=== PATIENT | female | born 1985 | race Two or more races ===

== ENCOUNTER 2017-07-03 13:23 | Emergency (ER) | payer MEDICAID ==
[~2017-07-03] VITALS: Ht 154.9 cm; Wt 57.3 kg
[2017-07-03 13:43] VITALS: BP 110/66
== END 2017-07-03 15:20 | disposition left against medical advice (07) ==
LOC: ER 13:23
DX: R42 Dizziness and giddiness (principal); Z53.21 Procedure and treatment not carried out due to patient leaving prior to being seen by health care provider